=== PATIENT | male | born 1990 | race Caucasian/White ===

== ENCOUNTER 2016-09-16 17:56 | Emergency (ER) | payer MEDICAID, OTHER ==
[~2016-09-16] VITALS: Ht 172.7 cm; Wt 63.5 kg
[~2016-09-16 17:56] MED LIST: CLON1TAB PO; GABA-283 PO; HYDR-3716 PO; NEUR300C PO; TRAZ50TA4 PO; no home meds
[2016-09-16 17:57] VITALS: BP 153/77
[2016-09-16] MEDS ORDERED: IBUP600T26 PO (18:07)
[2016-09-16] MEDS ORDERED: HYDR-3713 (18:07)
[2016-09-16] MEDS ORDERED: methylPREDNISolone INJ 125 MG/2 ML VIAL (J2930) IM ONE (19:30)
[2016-09-16] MEDS ORDERED: NORCOTAB PO (20:11)
[2016-09-16] MEDS ORDERED: PRED20TA PO (20:11)
== END 2016-09-16 20:25 | disposition home or self-care (01) ==
LOC: M ED 19:21
DX: G56.01 Carpal tunnel syndrome, right upper limb (principal)
CPT/HCPCS: 99281; J2930

== ENCOUNTER 2016-09-25 02:05 | Emergency (ER) | payer MEDICAID ==
[~2016-09-25] VITALS: Ht 172.7 cm; Wt 65.8 kg
[~2016-09-25 02:05] MED LIST changes: +HYDR-3713; +IBUP600T26 PO; +NORCOTAB PO; +PRED20TA PO
[2016-09-25] MEDS ORDERED: MORPHINE 2 MG/ML 1ML SYRINGE IV ONE (03:00)
[2016-09-25] MEDS ORDERED: KETO10TAB PO (03:02)
[2016-09-25 03:29] VITALS: BP 123/66
== END 2016-09-25 03:31 | disposition home or self-care (01) ==
LOC: M ED 02:52
DX: G56.11 Other lesions of median nerve, right upper limb (principal); M54.9 Dorsalgia, unspecified; G89.29 Other chronic pain; F17.200 Nicotine dependence, unspecified, uncomplicated; Z79.899 Other long term (current) drug therapy; Z79.52 Long term (current) use of systemic steroids

== ENCOUNTER 2017-03-01 13:00 | Emergency (ER) | payer MEDICAID, OTHER ==
[~2017-03-01] VITALS: Ht 170.2 cm; Wt 63.6 kg
[~2017-03-01 13:00] MED LIST changes: +IBUP-1022 PO; -IBUP600T26 PO; +KETO10TAB PO; +TRAZ50TA11 PO; -TRAZ50TA4 PO
[2017-03-01] MEDS ORDERED: KETOROLAC 60 MG/2 ML VIAL (J1885) IM ONE (14:15)
--- NOTE | 2017-03-01 14:58 | REP ---
Clinical: Lower back pain. Technique: AP, lateral, bilateral oblique and coned-down views of the lumbosacral spine. Findings: Straightening of normal lordosis is a nonspecific finding. There is minimal endplate sclerosis and disc space narrowing at the L5-S1 level. No obvious spondylolysis or spondylolisthesis. No acute fracture / compression injury or subluxation. Impression: Minimal narrowing at the L5-S1 level suggested. Signed by Simon Welch MD 03/01/2017 02:49 P
[2017-03-01] MEDS ORDERED: CYCL10TA PO (15:08)
[2017-03-01] MEDS ORDERED: HYDR-3713 PO (15:08)
[2017-03-01] MEDS ORDERED: NAPR500T PO (15:08)
[2017-03-01 15:18] VITALS: BP 118/70
== END 2017-03-01 15:19 | disposition home or self-care (01) ==
LOC: M ED 13:00
DX: M51.27 Other intervertebral disc displacement, lumbosacral region (principal); M54.9 Dorsalgia, unspecified; G89.29 Other chronic pain; F17.210 Nicotine dependence, cigarettes, uncomplicated; Z91.030 Bee allergy status; Z88.5 Allergy status to narcotic agent
CPT/HCPCS: 72110; 96372; 99282; J1885; J3360

== ENCOUNTER → 2018-01-07 | Outpatient (REF) | payer MEDICAID ==
[2018-01-07 18:51] LABS: FREE T4 1.11 NG/DL (0.76-1.46)
== END ==
LOC: M LAB REF 18:18
DX: R63.4 Abnormal weight loss (principal)

== ENCOUNTER → 2020-01-24 | Outpatient (REF) | payer OTHER, MEDICAID ==
[~2020-01-24] MED LIST changes: -CLON1TAB PO; +CLON1TAB8 PO; +CYCL-707 PO; -GABA-283 PO; +GABA-845 PO; +HYDR-3713 PO; +HYDR-3715 PO; +NAPR-837 PO; -NORCOTAB PO; +TRAZ-252 PO; -TRAZ50TA11 PO
== END ==
LOC: M LAB REF 06:32
PROVIDERS: ATTEND Family Medicine Addiction Medicine
DX: R68.82 Decreased libido (principal); F11.21 Opioid dependence, in remission

== ENCOUNTER → 2022-10-08 | Outpatient (REF) | payer OTHER, MEDICAID ==
[~2022-10-08] MED LIST changes: +GABA-283 PO; -GABA-845 PO
[2022-10-08 17:17] LABS: BASO # 0.1 10^3/uL (0.0-0.2); BASO % 0.8 % (0.0-1.0); EOS # 0.3 10^3/uL (0.0-0.5); EOS % 2.3 % (0.0-3.0); HEMOGLOBIN 14.8 g/dl (13.5-17.5); LYMPH # 4.6 10^3/uL (1.5-5.0); LYMPH % 40.4 % (24.0-44.0); MEAN CORPUSCULAR HEMOGLOBIN 29.4 pg (27.0-33.0); MEAN CORPUSCULAR HGB CONC 32.2 g/dl (32.0-36.5); MEAN CORPUSCULAR VOLUME 91.3 fl (80.0-96.0); MONO % 8.9 % (2.0-8.0); NEUTROPHILS # 5.3 10^3/uL (1.5-8.5); NEUTROPHILS % 47.2 % (36.0-66.0); PLATELET COUNT, AUTOMATED 301 10^3/uL (150-450); RED BLOOD COUNT 5.04 10^6/uL (4.30-6.10); WHITE BLOOD COUNT 11.3 10^3/uL (4.0-10.0)
[2022-10-08 17:38] LABS: ALKALINE PHOSPHATASE 69 U/L (46-116); ALT/SGPT 16 U/L (7.0-40); AST/SGOT 17 U/L (<34); BILIRUBIN,TOTAL 0.3 MG/DL (0.3-1.2); BLOOD UREA NITROGEN 9 MG/DL (9-23); CALCIUM LEVEL 9.5 MG/DL (8.5-10.1); CARBON DIOXIDE LEVEL 30 MMOL/L (20-31); CHLORIDE LEVEL 105 MMOL/L (98-107); CREATININE FOR GFR 0.77 MG/DL (0.70-1.30); GLOMERULAR FILTRATION RATE > 60.0 (>60); GLUCOSE, FASTING 75 MG/DL (60-100); POTASSIUM SERUM 4.3 MMOL/L (3.5-5.1); SODIUM LEVEL 141 MMOL/L (136-145); TOTAL PROTEIN 6.9 G/DL (5.7-8.2)
[2022-10-08 17:40] LABS: FREE T4 1.23 NG/DL (0.89-1.76); THYROID STIMULATING HORMONE 1.569 uIU/ML (0.55-4.78)
== END ==
LOC: M LAB REF 16:23
PROVIDERS: ATTEND Family Medicine Addiction Medicine
DX: L29.9 Pruritus, unspecified (principal)

== ENCOUNTER → 2022-10-16 | Outpatient (REF) | payer OTHER, MEDICAID | LOC: M LAB REF 18:35 | PROVIDERS: ATTEND Physician Assistant | DX: J02.9 Acute pharyngitis, unspecified (principal) ==